=== PATIENT | male | born 1990 | race Caucasian/White ===

== ENCOUNTER 2018-02-21 09:44 | Emergency (ER) | payer OTHER ==
[~2018-02-21] VITALS: Ht 180.3 cm; Wt 70.3 kg
[~2018-02-21 09:44] MED LIST: ADVAIR 250-501 EACH IH; ALBUTEROL INH; KEFLEX500 MG PO
[2018-02-21 09:50] VITALS: BP 117/81
[2018-02-21] MEDS ORDERED: FLEXERIL PO (10:07)
[2018-02-21] MEDS ORDERED: ULTRAM 50MG TAB50 MG PO (10:07)
[2018-02-21] MEDS ORDERED: BACTRIM DS TAB1 EACH PO (10:23)
== END 2018-02-21 10:20 | disposition home or self-care (01) ==
LOC: M.ERS 09:44
DX: S39.011A Strain of muscle, fascia and tendon of abdomen, initial encounter (principal); L02.212 Cutaneous abscess of back [any part, except buttock and flank]; J45.909 Unspecified asthma, uncomplicated; X58.XXXA Exposure to other specified factors, initial encounter; Y93.89 Activity, other specified; Y92.89 Other specified places as the place of occurrence of the external cause; Y99.8 Other external cause status